=== PATIENT | female | born 1995 | race African-American/Black ===

== ENCOUNTER 2018-01-22 10:38 | Emergency (ER) | payer MEDICAID ==
[~2018-01-22] VITALS: Ht 162.6 cm; Wt 110.0 kg
[~2018-01-22 10:38] MED LIST: ALBU2.5V13 IH; DOCU-138 PO; HYDR-523 PO
[2018-01-22] MEDS ORDERED: KETOROLAC 60MG/2ML VIAL IM ONE (14:30)
[2018-01-22 14:36] VITALS: BP 116/61
== END 2018-01-22 16:10 | disposition home or self-care (01) ==
LOC: ER 10:38
DX: G56.01 Carpal tunnel syndrome, right upper limb (principal); M54.2 Cervicalgia; M25.512 Pain in left shoulder; J45.909 Unspecified asthma, uncomplicated; F17.200 Nicotine dependence, unspecified, uncomplicated; Z98.890 Other specified postprocedural states
CPT/HCPCS: 73030; 81025; 96372; 99284; J1885

== ENCOUNTER 2023-03-25 14:00 | Emergency (ER) | payer MEDICAID, OTHER ==
[~2023-03-25] VITALS: Ht 167.6 cm; Wt 75.0 kg
[2023-03-25 14:29] VITALS: O2SAT 99
[2023-03-25 15:16] LABS: EOSINOPHILS % 6.7 % (0.0-5.0); HEMATOCRIT. 40.2 % (36.0-48.0); HEMOGLOBIN. 13.3 g/dL (12.0-16.0); LYMPHOCYTES % 45.7 % (20.0-50.0); MEAN CORPUSCULAR HEMOGLOBIN 27.9 pg (28.0-32.0); MEAN CORPUSCULAR VOLUME 84.8 fL (81.0-99.0); MEAN PLATELET VOLUME 7.3 fl (7.4-10.4); MONOCYTES % 6.1 % (2.0-8.0); NEUTROPHILS % 40.5 % (40.0-76.0); PLATELET 223 x1000/uL (130-400); RED BLOOD CELL COUNT 4.75 mill/uL (4.2-5.4); RED CELL DISTRIBUTION WIDTH 13.2 % (11.6-14.6)
[2023-03-25 15:19] LABS: CHLORIDE 112 mEq/L (98-107)
[2023-03-25 15:22] LABS: HCG SCREEN NEGATIVE
[2023-03-25] MEDS ORDERED: KETOROLAC 60MG/2ML VIAL IM ONE (17:30)
[2023-03-25 17:57] LABS: CLARITY URINE CLEAR (CLEAR); COLOR URINE YELLOW (YELLOW); KETONES URINE 1+ (NEGATIVE); LEUKOCYTE ESTERASE URINE NEGATIVE (NEGATIVE); NITRITE URINE NEGATIVE (NEGATIVE); OCCULT BLOOD URINE NEGATIVE (NEGATIVE); PH URINE 6.5 (4.5-8.0); PROTEIN URINE NEGATIVE (NEGATIVE); SPECIFIC GRAVITY URINE 1.028 (1.005-1.030); UROBILINOGEN URINE 0.2 E.U./dL (0.2-1.0)
[2023-03-25 19:56] VITALS: BP 115/70; PULSE 69; RESP 18; TEMP 98.3
== END 2023-03-25 19:57 | disposition home or self-care (01) ==
LOC: ER 14:00
DX: R10.2 Pelvic and perineal pain (principal); J45.909 Unspecified asthma, uncomplicated; Z98.890 Other specified postprocedural states
CPT/HCPCS: 80053; 81003; 81025; 84703; 85025; 36415; 76830; 76856; 96372; 99285; J1885; Z7610 ×2